=== PATIENT | male | born 1975 | race African-American/Black ===

== ENCOUNTER 2021-06-06 09:10 | Emergency (ER) | payer MEDICAID, OTHER ==
[~2021-06-06] VITALS: Ht 188 cm; Wt 77.1 kg
--- NOTE | 2021-06-06 09:19 | NUR ---
DR Lopez at the bedside for MSE.
[2021-06-06] MEDS ORDERED: IBUPROFEN 800 MG TABLET PO ONE (09:30)
[2021-06-06] MEDS ORDERED: IBUPROFEN 800 MG TABLET ONE (09:54)
[2021-06-06 11:06] VITALS: BP 126/90
--- NOTE | 2021-06-06 11:07 | NUR ---
Patient discharged to home in stable condition. Written and verbal after care instructions given. Patient verbalizes understanding of instructions, but refused to sign discharge paperwork. Stressed follow up or return to ER for worsening s/s.
== END 2021-06-06 11:07 | disposition home or self-care (01) ==
LOC: ER 09:10
DX: S63.602A Unspecified sprain of left thumb, initial encounter (principal); X50.0XXA Overexertion from strenuous movement or load, initial encounter; Y92.89 Other specified places as the place of occurrence of the external cause; Z91.018 Allergy to other foods
CPT/HCPCS: 73130; A4663

== ENCOUNTER 2024-03-11 03:53 | Emergency (ER) | payer OTHER ==
[~2024-03-11] VITALS: Ht 188 cm; Wt 77.1 kg
[2024-03-11 04:29] VITALS: O2SAT 94
== END 2024-03-11 05:45 | disposition home or self-care (01) ==
LOC: ER 04:03
DX: R07.81 Pleurodynia (principal); J45.909 Unspecified asthma, uncomplicated; F32.A Depression, unspecified; Z60.2 Problems related to living alone
CPT/HCPCS: 71045; A4606; A4663